=== PATIENT | female | born 1960 | race Caucasian/White ===

== ENCOUNTER → 2017-07-26 | Outpatient (CLI) | payer MEDICARE, OTHER ==
--- NOTE | 2017-07-27 07:34 | MM ---
Reason for exam: screening (asymptomatic). Last mammogram was performed 1 year and 1 month ago. History: Patient is postmenopausal and has history of endometrial cancer at age 21. Cyst aspiration of the left breast, 2004. Physical Findings: A clinical breast exam by your physician is recommended on an annual basis and results should be correlated with mammographic findings. MG 3D Screening Mammo W/Cad Bilateral CC and MLO view(s) were taken. Prior study comparison: June 20, 2016, bilateral MG 3d screening mammo w/cad. June 14, 2015, bilateral MG screening mammo w CAD. The breast tissue is heterogeneously dense. This may lower the sensitivity of mammography. No suspicious abnormality. No significant changes when compared with prior studies. ASSESSMENT: Negative, BI-RAD 1 RECOMMENDATION: Routine screening mammogram of both breasts in 1 year.
== END | disposition home or self-care (01) ==
LOC: RADMAMWWP 09:56
PROVIDERS: ATTEND Family Medicine
DX: Z12.31 Encounter for screening mammogram for malignant neoplasm of breast (principal)
CPT/HCPCS: 77063; G0202

== ENCOUNTER → 2018-12-23 | Outpatient (CLI) | payer MEDICARE, OTHER ==
--- NOTE | 2018-12-23 17:15 | BD ---
EXAMINATION TYPE: Axial Bone Density DATE OF EXAM: 12/23/2018 COMPARISON: NONE CLINICAL HISTORY: Height: 64 Weight: 182.2 FRAX RISK QUESTIONS: Alcohol (3 or more units per day): no Family History (Parent hip fracture): no Glucocorticoids (More than 3mos): no (Ex: prednisone, prednisolone, methylprednisolone, dexamethasone, and hydrocortisone). History of Fracture in Adulthood: no Secondary Osteoporosis: 1. Type 1 Diabetes: no 2. Hyperthyroidism: no 3. Menopause before 45: yes 4. Malnutrition: no 5. Chronic liver disease: no Rheumatoid Arthritis: no Current Tobacco Use: no RISK FACTORS HISTORY OF: Family History of Osteoporosis: no Active: yes Diet low in dairy products/other sources of calcium: yes Postmenopausal woman: age 41 MEDICATIONS: protonix, zantac, x2 antidepressants, Thyroid Medications: thyroid How Long: long time Additional History: EXAM MEASUREMENTS: Bone mineral densitometry was performed using the [employer] System. Bone mineral density as measured about the Lumbar spine is: ----- L1-L4(G/cm2): 1.352 T Score Values are as follows: ----- L2: -0.1 ----- L3: 2.4 ----- L4: 2.4 ----- L1-L4: 1.4 Bone mineral density has: increased 0.9 % since study of: 06.20.2016 Bone mineral density about the R hip (g/cm2): 0.859 Bone mineral density about the L hip (g/cm2): 0.891 T Score values are as follows: -----R Neck: -1.3 -----L Neck: -1.1 -----R Total: -0.1 -----L Total: -0.2 Bone mineral density has: decreased -3.1 % since study of: 06.20.2016 IMPRESSION: Osteopenia (T Score between -2.5 and -1). There is slightly increased risk of fracture and the patient may be considered for treatment. Re-Screen 2-5 years. NOTE: T-SCORE=SD OF THE YOUNG ADULT MEAN.
--- NOTE | 2018-12-24 09:26 | MM ---
Reason for exam: screening (asymptomatic). Last mammogram was performed 1 year and 5 months ago. History: Patient is postmenopausal and has history of endometrial cancer at age 21. Cyst aspiration of the left breast, 2004. Physical Findings: A clinical breast exam by your physician is recommended on an annual basis and results should be correlated with mammographic findings. MG 3D Screening Mammo W/Cad Bilateral CC and MLO view(s) were taken. Prior study comparison: July 26, 2017, bilateral MG 3d screening mammo w/cad. June 20, 2016, bilateral MG 3d screening mammo w/cad. The breast tissue is heterogeneously dense. This may lower the sensitivity of mammography. There are benign appearing round calcifications bilaterally. There is no discrete abnormality. ASSESSMENT: Benign, BI-RAD 2 RECOMMENDATION: Routine screening mammogram of both breasts in 1 year.
== END ==
LOC: RADMAMWWP 10:25
PROVIDERS: ATTEND Family Medicine
DX: Z12.31 Encounter for screening mammogram for malignant neoplasm of breast (principal); M85.80 Other specified disorders of bone density and structure, unspecified site; Z78.0 Asymptomatic menopausal state
CPT/HCPCS: 77063; 77067; 77080

== ENCOUNTER → 2021-12-20 | Outpatient (CLI) | payer MEDICARE ==
--- NOTE | 2021-12-22 11:04 | MM ---
Reason for exam: screening (asymptomatic). Last mammogram was performed 3 years ago. History: Patient is postmenopausal and has history of endometrial cancer at age 21. Cyst aspiration of the left breast, 2004. Physical Findings: A clinical breast exam by your physician is recommended on an annual basis and results should be correlated with mammographic findings. MG 3D Screening Mammo W/Cad Bilateral CC and MLO view(s) were taken. Prior study comparison: December 23, 2018, bilateral MG 3d screening mammo w/cad. July 26, 2017, bilateral MG 3d screening mammo w/cad. The breast tissue is heterogeneously dense. This may lower the sensitivity of mammography. There is chronic nodularity bilaterally. No significant changes when compared with prior studies. ASSESSMENT: Benign, BI-RAD 2 RECOMMENDATION: Routine screening mammogram of both breasts in 1 year.
== END | disposition home or self-care (01) ==
LOC: RADMAMWWP 12:41
PROVIDERS: ATTEND Family Medicine
DX: Z12.31 Encounter for screening mammogram for malignant neoplasm of breast (principal); Z78.0 Asymptomatic menopausal state
CPT/HCPCS: 77063; 77067

== ENCOUNTER → 2023-01-25 | Day surgery (SDC) | payer MEDICARE, OTHER ==
[2023-01-23 09:00] VITALS: BMI 30.9
[~2023-01-25] MED LIST: LACTATED RINGERS 1,000 ML IV ONE; LACTATED RINGERS 1,000 ML IV SCH; LIDOCAINE 1% (10MG/ML) FOR IV START INTRADERMA PRN; LIDOCAINE 2% INJ 20 MG/ML (2 ML VIAL) ONE; PROPOFOL 10 MG/ML 20 ML VIAL IV ONE
[2023-01-25 07:55] VITALS: TEMP 98
[2023-01-25 08:02] LABS: Glucose,Whole Blood 90 mg/dL (70-110)
--- NOTE | 2023-01-25 08:25 | P.GSHP ---
History of Present Illness H&P Date: 01/25/23 Chief Complaint: GERD, epigastric pain This a 62-year-old female presents today for EGD. Patient complaints of GERD and epigastric pain. Past Medical History Past Medical History: Asthma, Cancer, Thyroid Disorder Additional Past Medical History / Comment(s): UTERINE CANCER History of Any Multi-Drug Resistant Organisms: None Reported Past Surgical History: Hysterectomy Additional Past Surgical History / Comment(s): EGD, Past Anesthesia/Blood Transfusion Reactions: No Reported Reaction Smoking Status: Never smoker - Past Family History Mother Family Medical History: No Reported History Medications and Allergies Home Medications Medication Instructions Recorded Confirmed Type Albuterol Inhaler [Ventolin Hfa 2 puff INHALATION TID PRN 01/23/23 01/23/23 History Inhaler] Atorvastatin [Lipitor] 20 mg PO HS 01/23/23 01/23/23 History Cholecalciferol [Vitamin D3 (25 25 mcg PO DAILY 01/23/23 01/23/23 History Mcg = 1000 Iu)] Levothyroxine Sodium [Synthroid] 75 mcg PO DAILY 01/23/23 01/23/23 History Naproxen [Naprosyn] 500 mg PO BID PRN 01/23/23 01/23/23 History Omeprazole 40 mg PO DAILY 01/23/23 01/23/23 History Venlafaxine HCl [Effexor XR] 150 mg PO BID 01/23/23 01/23/23 History buPROPion XL [Wellbutrin XL] 300 mg PO DAILY 01/23/23 01/23/23 History clonazePAM [KlonoPIN] 0.5 mg PO HS 01/23/23 01/23/23 History Allergies Allergy/AdvReac Type Severity Reaction Status Date / Time adhesive tape Allergy RED SKIN, Verified 01/25/23 07:56 ITCHING Surgical - Exam Vital Signs Temp Pulse Resp BP Pulse Ox 98 F 80 16 140/71 98 01/25/23 07:54 01/25/23 07:54 01/25/23 07:54 01/25/23 07:54 01/25/23 07:54 - General well developed, well nourished, no distress - Eyes PERRL - ENT normal pinna - Neck no masses - Respiratory normal expansion - Cardiovascular Rhythm: regular - Abdomen Abdomen: soft, non tender Assessment and Plan Assessment: GERD, epigastric pain. We'll perform EGD.
--- NOTE | 2023-01-25 08:32 | P.OP ---
Date of Procedure: 01/25/23 Preoperative Diagnosis: GERD Postoperative Diagnosis: Antral gastritis Procedure(s) Performed: EGD Anesthesia: MAC Surgeon: Jordan Neal Pathology: other (Antrum, esophagus) Condition: stable Disposition: PACU Description of Procedure: The patient's placed on the endoscopy table in the lateral position. She received IV sedation. The gastroscope placed oropharynx passed in the esophagus and stomach. Scope some placed through the pylorus. The first and second portion of the duodenum appeared normal. Scope was then brought back the antrum this was mildly inflamed. A biopsies performed. The scope was then retroflexed and the remainder the stomach appeared normal. There was no significant hiatal hernia. The GE junction was at 40 cm. The distal esophagusAppeared Minimal inflamed. A biopsies was performed. The proximal esophagus appeared normal. Scope was withdrawn for patient. There was no significant pathology to explain the patient's epigastric pain. Patient was scheduled for a HIDA scan.
[2023-01-25 08:42] VITALS: PULSE 70
[2023-01-25 08:54] VITALS: BP 139/84; RESP 16
--- NOTE | 2023-01-25 15:19 | NM ---
EXAMINATION TYPE: NM hepatobiliary w CCK DATE OF EXAM: 01/25/2023 COMPARISON: NONE INDICATION: Epigastric pain TECHNIQUE: After the intravenous administration of 3.7 mCi Tc 99m Mebrofenin hepatobiliary scintigrap hy is performed. Images were obtained immediately post injection. FINDINGS: There is prompt uptake and excretion of radiotracer by the liver. Extrahepatic ducts are identified at 6 minutes. The gallbladder is visualized out at approximately 4 hours. Small bowel activity is noted within 22 minutes. At 4 hours 1.7 mcg Kinevac was administered, patient was injected with 1.7 mcg of Kinevac, and gallbl adder ejection fraction is calculated at 1% %, which is abnormal. (Normal >35% and <80%.). Note is made of duodenal gastric reflux during the exam. IMPRESSION: 1. Marked delayed filling of the gallbladder. 2. Essentially akinetic gallbladder. No significant measurable ejection fraction from the gallbladder could be elicited.
== END | disposition home or self-care (01) ==
LOC: ORWHC2ENDO 06:58
PROVIDERS: ATTEND Surgery
DX: K29.50 Unspecified chronic gastritis without bleeding (principal); K21.00 Gastro-esophageal reflux disease with esophagitis, without bleeding; J45.909 Unspecified asthma, uncomplicated; Z79.51 Long term (current) use of inhaled steroids; E03.9 Hypothyroidism, unspecified; Z79.890 Hormone replacement therapy; Z79.899 Other long term (current) drug therapy; Z91.048 Other nonmedicinal substance allergy status; Z85.42 Personal history of malignant neoplasm of other parts of uterus; Z98.890 Other specified postprocedural states; Z79.1 Long term (current) use of non-steroidal anti-inflammatories (NSAID)
CPT/HCPCS: 78227; 43239; A9537; J2805; J2704; J2001; 88305

== ENCOUNTER 2023-02-20 06:30 | Day surgery (SDC) | payer MEDICARE, OTHER ==
[2023-02-14 09:34] VITALS: BMI 31.7
[~2023-02-20 06:30] MED LIST changes: +ACETAMINOPHEN TAB 500 MG TAB PO PRN; +DEXAMETHASONE SOD PHOSPHATE 4 MG/ML 1 ML VIAL IV ONE; +HEPARIN SODIUM,PORCINE/PF 5,000 UNIT/0.5 ML SYRINGE SQ PRN; +HYDROmorphone 0.5 MG/0.5 ML SYRINGE IVP PRN; -LACTATED RINGERS 1,000 ML IV ONE; -LIDOCAINE 1% (10MG/ML) FOR IV START INTRADERMA PRN; -LIDOCAINE 2% INJ 20 MG/ML (2 ML VIAL) ONE; +ONDANSETRON 4 MG/2 ML VIAL IVP ONE; -PROPOFOL 10 MG/ML 20 ML VIAL IV ONE
[2023-02-20 07:18] LABS: Glucose,Whole Blood 98 mg/dL (70-110)
[2023-02-20] MEDS ORDERED: MIDAZOLAM 2 MG/2 ML VIAL IVP ONE (07:32)
[2023-02-20] MEDS ORDERED: ROCURONIUM 10 MG/ML (5 ML VIAL) IV ONE (07:44)
[2023-02-20] MEDS ORDERED: GLYCOPYRROLATE 0.2 MG/ML 2 ML VIAL ONE (07:44)
[2023-02-20] MEDS ORDERED: NEOSTIGMINE 1 MG/ML 10 ML VIAL ONE (07:44)
[2023-02-20] MEDS ORDERED: fentaNYL (PF) 50 MCG/ML 2 ML AMP ONE (07:44)
[2023-02-20] MEDS ORDERED: PROPOFOL 10 MG/ML 20 ML VIAL IV ONE (07:44)
[2023-02-20] MEDS ORDERED: LIDOCAINE 2% INJ 20 MG/ML (2 ML VIAL) ONE (07:44)
[2023-02-20] MEDS ORDERED: SUCCINYLCHOLINE CHLORIDE 200 MG/10 ML VIAL IV ONE (07:44)
[2023-02-20] MEDS ORDERED: MIDAZOLAM 2 MG/2 ML VIAL ONE (07:44)
[2023-02-20] MEDS ORDERED: INDOCYANINE GREEN 25 MG VIAL IV STA (07:46)
[2023-02-20] MEDS ORDERED: BUPIVACAIN-EPI 0.25%-1:200,000 30 ML VIAL SQ ONE (08:14)
--- NOTE | 2023-02-20 09:24 | P.OP ---
Date of Procedure: 02/20/23 Preoperative Diagnosis: Chronic cholecystitis Biliary dysfunction Postoperative Diagnosis: Adhesions Procedure(s) Performed: Laparoscopic lysis of adhesions Anesthesia: DEREK Surgeon: Jordan Neal Estimated Blood Loss (ml): 10 Pathology: none sent Condition: stable Disposition: PACU Indications for Procedure: This 62-year-old female who's had complaints of right quadrant pain. Recent HIDA scan shows a akinetic gallbladder with 1% ejection fraction.0 Operative Findings: Dense inflammatory response in area of gallbladder with duodenum and omentum and liver densely adhered to the area Description of Procedure: The patient's placed on the operative table in supine position. She received general anesthesia. Her abdomen was prepped and draped usual fashion. An infraumbilical skin incision was made then using a pair of Pearson clamps the fascia was grasped. Then the Veress was positioned into the Perineal cavity. This was confirmed with positive drop test. The abdomen was insufflated. After adequate insufflation a 5 mm optical trocar is placed. Cavity. And then the laparoscope was placed. Cavity. Next a 12 mm robotic trochars placed in the left epigastric area. A 8 mm robotic trochars placed in right lateral position and then another 8 mm trochars placed in the right midabdomen position. The patient's placed in reverse Trendelenburg right side up. She was undocked the robot. The right upper quadrant exam. There was a dense inflammatory reaction in the right upper quadrant which involved the liver omentum and stomach and duodenum. The adhesions in the area the gallbladder were then lysed using sharp dissection. A left cautery was also used. The gallbladder was not well visualized. At this point due to the dense inflamed response sided to review the HIDA scan. HIDA scan showed delayed filling of the gallbladder requiring approximate 4 hours with a 1% ejection fraction. At this point it was noted that the duodenum was stuck in the area of the the gallbladder. And due to the extensive plantar reaction was decided to stop the procedure and obtain more imaging of the area. There was no bleeding seen. The adhesions were lysed were examined there is no bleeding seen. There is no evidence of any injury to the stomach and duodenum liver. The patient was undocked the robot. The trochars withdrawn. The 12 mm trocar site was closed with 0 Vicryl. Skin was closed with interrupted 3-0 Monocryl suture. Patient top she will was sent to recovery room stable condition.
[2023-02-20 09:33] VITALS: TEMP 97
[2023-02-20] MEDS ORDERED: IV FLUID CONTINUATION 1,000 ML IV ONE (10:41)
--- NOTE | 2023-02-20 11:04 | P.PN ---
Progress Note - Text Progress Note Date: 02/20/23 The patient's HIDA scan was reviewed with Dr. Gallo and Dr. Monson. The HIDA scan was originally reported with a gallbladder filling 4 hours. On secondary review the gallbladder does not appear to fill at all. Radiology will be dictating an addendum.
[2023-02-20 11:24] VITALS: RESP 18
[2023-02-20 11:51] VITALS: BP 116/69; PULSE 83
== END 2023-02-20 12:10 | disposition home or self-care (01) ==
LOC: OR 06:30
PROVIDERS: ATTEND Surgery
DX: K66.0 Peritoneal adhesions (postprocedural) (postinfection) (principal); K81.1 Chronic cholecystitis; K82.8 Other specified diseases of gallbladder; E78.5 Hyperlipidemia, unspecified; J45.909 Unspecified asthma, uncomplicated; E03.9 Hypothyroidism, unspecified; F41.8 Other specified anxiety disorders; K21.9 Gastro-esophageal reflux disease without esophagitis; Z79.890 Hormone replacement therapy; Z79.51 Long term (current) use of inhaled steroids; Z79.899 Other long term (current) drug therapy; Z98.890 Other specified postprocedural states
CPT/HCPCS: 44180; J2250; J0330; J1100; J2710; J0690; J2405; J3010; J2704; J1170; J1644; J2001

== ENCOUNTER → 2023-03-29 | Outpatient (CLI) | payer MEDICARE, OTHER ==
--- NOTE | 2023-03-30 11:19 | MR ---
EXAMINATION TYPE: MR MRCP DATE OF EXAM: 03/29/2023 8:21 AM CLINICAL INDICATION:Female, 62 years old with history of K83.1 OBSTRUCTION OF BILE DUCT; abdomen pain , dilated bile duct COMPARISON: 03/05/2023 TECHNIQUE: Multi planar, T2-weighted imaging with and without fat saturation and chemical shift imag ing was performed of the abdomen. Then, heavily T2 weighted imaging (half-Fourier acquisition single- shot turbo spin-echo) was utilized in order to study the biliary system. Maximum intensity projectio n images were reconstructed from the original data of the biliary tree. 3D images were created on [employer] work station. No Gadolinium given. FINDINGS: MRCP: The intrahepatic ducts are normal in appearance.. The common bile duct at the level of the pa ncreatic head measures 7 mm in size. The common hepatic duct measures 5 mm in size. The pancreatic d uct is normal. The gallbladder demonstrates low T1/T2 signal gallstones measuring up to 17 mm. The gallbladder is co ntracted without evidence for wall thickening or high T2 signal Fat stranding around the gallbladder fossa. Abdomen: Liver: Signal dropout on chemical shift artifact is imaging of the liver parenchyma. No focal mass vi sualized. Pancreas: Unremarkable. Spleen: 8 mm intermediate T2 signal lesion within the spleen. Adrenal glands: Unremarkable. Kidneys: Unremarkable. Stomach and Bowel: Unremarkable as visualized. Peritoneum: No evidence of pneumoperitoneum, free fluid, or adenopathy. Vasculature: Unremarkable. No aortic aneurysm. Abdominal wall: Fat-containing umbilical hernia. Musculoskeletal: The osseous structures appear intact. IMPRESSION: 1. No evidence for choledocholithiasis. No ductal dilation or stricture. Given HIDA scan on 3 with nonvisualization of the gallbladder findings suggest some component of cholecystitis (acute/ch ronic). There is no pericholecystic inflammation or wall thickening definitively visualized. 2. Cholelithiasis.. 3. Splenic 8 mm hemangioma versus cyst. 4. Hepatic steatosis.
== END | disposition home or self-care (01) ==
LOC: RADMRIMAIN 07:13
PROVIDERS: ATTEND Surgery
DX: K76.0 Fatty (change of) liver, not elsewhere classified (principal); K80.21 Calculus of gallbladder without cholecystitis with obstruction
CPT/HCPCS: 74181

== ENCOUNTER → 2023-04-05 | Outpatient (CLI) | payer MEDICARE ==
--- NOTE | 2023-04-06 18:06 | MM ---
Reason for Exam: Screening (asymptomatic). Last mammogram was performed 1 year(s) and 4 month(s) ago. Patient History: Menarche at age 13. First Full-Term at age 17. Hysterectomy at age 21. Postmenopausal. Endometrial cancer, age 21. 2005, Cyst Aspiration on the Left side. Risk Values: Tomasa 5 year model risk: 1.1%. NCI Lifetime model risk: 5.2%. Prior Study Comparison: 07/26/2017 Bilateral Screening Mammogram, [facility]. 12/23/2018 Bilateral Screening Mammogram, [facility]. 12/20/2021 Bilateral Screening Mammogram, [facility]. Tissue Density: The breast tissue is heterogeneously dense. This may lower the sensitivity of mammography. Findings: Analyzed By CAD. Asymmetric densities within the right breast remain unchanged. Chronic nodularity within the left breast. There is no suspicious group of microcalcifications or new suspicious mass in either breast. Overall Assessment: Benign, BI-RAD 2 Management: Screening Mammogram of both breasts in 1 year. . Patient should continue monthly self-breast exams. A clinical breast exam by your physician is recommended on an annual basis. This exam should not preclude additional follow-up of suspicious palpable abnormalities. Note on Tomasa scores and lifetime risk: 1. A Tomsaa score greater than 3% is considered moderate risk. If this is the case, consider specialist referral to assess eligibility for a risk reducing agent. 2. If overall lifetime risk for the development of breast cancer is 20% or higher, the patient may qualify for future screening with alternating mammogram and breast MRI. Electronically signed and approved by: Aurora Gallo M.D. Radiologist
== END | disposition home or self-care (01) ==
LOC: RADMAMWWP 10:41
PROVIDERS: ATTEND Family Medicine
DX: Z12.31 Encounter for screening mammogram for malignant neoplasm of breast (principal); Z78.0 Asymptomatic menopausal state
CPT/HCPCS: 77063; 77067

== ENCOUNTER 2023-04-18 06:41 | Inpatient (IN) | payer MEDICARE ==
[2023-04-13 13:32] VITALS: BMI 32.5
[~2023-04-18 06:41] MED LIST changes: -HYDROmorphone 0.5 MG/0.5 ML SYRINGE IVP PRN; -LACTATED RINGERS 1,000 ML IV SCH
[2023-04-18] MEDS ORDERED: LIDOCAINE 1% (10MG/ML) FOR IV START INTRADERMA ONE (08:05)
[2023-04-18] MEDS: LACTATED RINGERS 1,000 ML IV SCH (08:05)
[2023-04-18] MEDS ORDERED: BUPIVACAINE (PF) 0.25% 30 ML VIAL SQ ONE ×2 (08:23→08:51)
[2023-04-18] MEDS ORDERED: LIDOCAINE 2% INJ 20 MG/ML (2 ML VIAL) ONE (08:26)
[2023-04-18] MEDS ORDERED: SUCCINYLCHOLINE CHLORIDE 200 MG/10 ML VIAL IV ONE (08:26)
[2023-04-18] MEDS ORDERED: NEOSTIGMINE 1 MG/ML 10 ML VIAL ONE (08:26)
[2023-04-18] MEDS ORDERED: MIDAZOLAM 2 MG/2 ML VIAL ONE (08:26)
[2023-04-18] MEDS ORDERED: KETOROLAC 15 MG/ML 1 ML VIAL ONE (08:26)
[2023-04-18] MEDS ORDERED: GLYCOPYRROLATE 0.2 MG/ML 2 ML VIAL ONE (08:26)
[2023-04-18] MEDS ORDERED: fentaNYL (PF) 50 MCG/ML 2 ML AMP ONE (08:26)
[2023-04-18] MEDS ORDERED: ROCURONIUM 10 MG/ML (5 ML VIAL) IV ONE (08:26)
[2023-04-18] MEDS ORDERED: PROPOFOL 10 MG/ML 20 ML VIAL IV ONE (08:26)
--- NOTE | 2023-04-18 10:23 | P.OP ---
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 The patient received a general endotracheal tube anesthesia. The patients abdomen was prepped and draped in the usual sterile fashion. Through an infraumbilical stab incision, the fascia of the anterior abdominal wall was grasped with a pair of Kochers and then the Veress needle was placed in the peritoneal cavity. Position of the Veress needle was confirmed with positive drop test. The abdomen was then insufflated. After adequate insufflation, the 10 mm trocar was placed in the peritoneal cavity. Following this the laparoscope was placed in the peritoneal cavity. The patient was placed in the head-up, right side up position and then a 5 mm trocar was placed in the right lateral and right subcostal position under direct visualization. A 8 mm trocar was placed in the epi gastric position. There were significant adhesions around the edge of the liver where the gallbladder was especially be. There was also visualized stomach drawn up into the adhesions. Several times made to lyse the adhesions were quite dense. This point decided to convert the procedure to an open cholecystectomy. The trochars withdrawn. The skin was incised in the right subcostal area. Then using electrocautery the subcutaneous tissues were divided. And then the fascia was divided. The muscles were then divided using electrocautery. The perineal cavity was entered. A Bookwalter retractors placed a wound. There were dense adhesions in the expected area of the gallbladder. The stomach was dissected off of this area. And there was a fistulous seen between the stomach and gallb ladder. The stomach was repaired with 3-0 GI silk suture. The gallbladder was opened at the area the fistula and there were gallstones seen within the gallbladder. The gallstones were extracted. The gallbladder was thickened and contracted. There was significant inflammatory response throughout the entire area of the gallbladder. Using blunt and sharp dissection the common bile duct was then found. And then the cystic duct and common hepatic duct were visualized. The union between the cystic duct common hepatic duct and common bile duct was visualized. The cystic duct was then suture ligated with 0 silk ties and then transected. Then using 3-0 GI silk suture the cystic artery was divided and ligated. The gallbladder was then dissected off the liver bed using left cautery. The gallbladder was then sent to pathology. The gallstones were also sent to pathology. The liver visit for hemostasis. There is no bleeding seen. The wound was then Irrigated there is no evidence of any bile leak or bleeding seen. A ANDERSON drain is placed in the gallbladder fossa and brought out through the lateral 5 mm trocar site. The fascia was then closed with looped #1 PDS suture. Skin was closed cheryl. Patient top procedure well and was sent to recovery room in stable condition.
[2023-04-18] MEDS ORDERED: HYDROmorphone 0.5 MG/0.5 ML SYRINGE IVP PRN (10:24)
[2023-04-18] MEDS ORDERED: LACTATED RINGERS 1,000 ML IV ONE (10:24)
[2023-04-18] MEDS ORDERED: ONDANSETRON 4 MG/2 ML VIAL IVP PRN (10:24)
[2023-04-18] MEDS ORDERED: NALOXONE 0.4 MG/ML 1 ML VIAL IV PRN (10:24)
[2023-04-18] MEDS: HYDROmorphone 0.5 MG/0.5 ML SYRINGE IVP PRN ×3 (10:40→11:30)
[2023-04-18] MEDS: HYDROmorphone 1 MG/ML 1 ML SYRINGE IVP PRN ×2 (13:42→20:07)
[2023-04-18] MEDS: KETOROLAC 15 MG/ML 1 ML VIAL IVP SCH ×3 (13:52→23:50)
[2023-04-18] MEDS ORDERED: IPRATROPIUM-ALBUTEROL 3 ML NEB INHALATION PRN (13:59)
[2023-04-18] MEDS: buPROPion XL 300 MG TAB.ER.24H PO SCH (16:59)
[2023-04-18] MEDS: PANTOPRAZOLE 40 MG TABLET PO SCH (16:59)
[2023-04-18] MEDS: VENLAFAXINE HCL ER 150 MG CAP PO SCH (20:07)
[2023-04-18] MEDS ORDERED: VENLAFAXINE HCL ER 150 MG CAP PO SCH (21:00)
[2023-04-19] MEDS: HYDROmorphone 1 MG/ML 1 ML SYRINGE IVP PRN ×2 (00:41→06:01)
[2023-04-19] MEDS: LEVOTHYROXINE 75 MCG TAB PO SCH (05:58)
[2023-04-19] MEDS: KETOROLAC 15 MG/ML 1 ML VIAL IVP SCH ×4 (06:01→23:07)
[2023-04-19] MEDS: LACTATED RINGERS 1,000 ML IV SCH (06:02)
[2023-04-19] MEDS ORDERED: IPRATROPIUM-ALBUTEROL 3 ML NEB INHALATION PRN (08:39)
[2023-04-19] MEDS: SYMBICORT 80-4.5 MCG INHALER INHALATION SCH ×2 (08:58→21:11)
[2023-04-19] MEDS ORDERED: PANTOPRAZOLE 40 MG TABLET PO SCH (09:00)
[2023-04-19] MEDS ORDERED: buPROPion XL 300 MG TAB.ER.24H PO SCH (09:00)
[2023-04-19] MEDS: PANTOPRAZOLE 40 MG TABLET PO SCH (09:48)
[2023-04-19] MEDS: buPROPion XL 300 MG TAB.ER.24H PO SCH (09:48)
[2023-04-19] MEDS: VENLAFAXINE HCL ER 150 MG CAP PO SCH ×2 (09:48→20:53)
[2023-04-19] MEDS: ENOXAPARIN 40 MG/0.4 ML SYRINGE SQ SCH (09:48)
[2023-04-19] MEDS: LORATADINE 10 MG TAB PO SCH (09:48)
[2023-04-19 11:06] LABS: Basophils # (A) 0.05 X 10*3/uL (0.00-0.10); Basophils % (A) 0.3 %; Eosinophils # (A) 0.07 X 10*3/uL (0.04-0.35); Eosinophils % (A) 0.4 %; HCT 42.4 % (37.2-46.3); HGB 13.4 d/dL (12.0-15.0); Lymphocytes # (A) 1.79 X 10*3/uL (0.90-5.00); Lymphocytes % (A) 9.7 %; MCH 29.4 pg (27.0-32.0); MCHC 31.6 d/dL (32.0-37.0); Mean Platelet Volume 10.6 FL (9.5-12.2); Monocytes # (A) 1.43 X 10*3/uL (0.20-1.00); Monocytes % (A) 7.7 %; NRBC Per 100 WBC 0 X 10*3/uL (0.00-0.01); Neutrophils # (A) 15.06 X 10*3/uL (1.80-7.70); Neutrophils % (A) 81.4 %; Platelet Count 319 X 10*3/uL (140-440); RBC 4.56 X 10*6/uL (4.10-5.20); RDW 13.5 % (11.5-14.5)
[2023-04-19 11:08] LABS: ALT 191 U/L (8-44); AST 125 U/L (13-35); Albumin 4.2 d/dL (3.8-4.9); Albumin/Globulin Ratio 1.91 Ratio (1.60-3.17); Alkaline Phosphatase 97 U/L (41-126); BUN/Creat Ratio 22.33 Ratio (12.00-20.00); Blood Urea Nitrogen 20.1 mg/dL (9.0-27.0); Calcium 9.3 mg/dL (8.7-10.3); Carbon Dioxide 28.4 mmol/L (21.6-31.8); Chloride 100 mmol/L (96-109); Globulin 2.2 d/dL (1.6-3.3); Glucose 133 mg/dL (70-110); Potassium 4.2 mmol/L (3.5-5.5); Sodium 141 mmol/L (135-145); Total Bilirubin 0.7 mg/dL (0.3-1.2); Total Protein 6.4 d/dL (6.2-8.2)
[2023-04-19] MEDS: IPRATROPIUM-ALBUTEROL 3 ML NEB INHALATION SCH ×3 (11:26→21:11)
[2023-04-19] MEDS: PIPERACILLIN-TAZOBACTAM 3.375 GM in SODIUM CHLORIDE 0.9% 100 ML IVPB SCH ×2 (12:37→20:53)
[2023-04-19] MEDS ORDERED: DEXTROSE 50% SYRINGE 50 ML IVP PRN ×2 (12:50)
--- NOTE | 2023-04-19 13:24 | P.PN ---
Subjective Progress Note Date: 04/19/23 CHIEF COMPLAINT: Acute on chronic cholecystitis HISTORY OF PRESENT ILLNESS: Patient is postop day #1 status post diagnostic laparoscopy with open cholecystectomy and repair of gastric fistula. Patient reports her pain is controlled. She denies any nausea or vomiting. She is having flatus. ANDERSON drain with sanguinous output. Afebrile. White count is elevated at 18.5 H3 13.4 platelets 319 Na 141 potassium is 4.2 creatinine 0.9 total bilirubin 0.7 AST 125 ALT 191 alk phos 97 ANDERSON drain was 60 mL serosa nguineous output PHYSICAL EXAM: VITAL SIGNS: Reviewed. GENERAL: Well-developed in no acute distress. HEENT: No sclera icterus. Extraocular movements grossly intact. Moist buccal mucosa. Head is atraumatic, normocephalic. ABDOMEN: Soft. Nondistended. Tender incision site. Incisional dressing clean dry and intact. Has abdominal binder. ANDERSON drain with serositis output NEUROLOGIC: Alert and oriented. Cranial nerves II through XII grossly intact. ASSESSMENT: 1. Acute on chronic cholecystitis with gastric fistula between the gallbladder and antrum and cholelithiasis status post diagnostic laparoscopy, open cholecystectomy and repair of gastric fistula 2. Leukocytosis PLAN: -Zosyn added for leukocytosis -Continue clear liquid diet -Repeat LFTs in a.m. -Continue pain management -Encouraged patient to use incentive spirometer -Encouraged patient to ambulate -DVT prophylaxis Lovenox and GI prophylaxis Protonix Physician Transportation Job Titles note has been reviewed by physician. Signing provider agrees with the documented findings, assessment, and plan of care. Objective - Vital Signs Vital signs: Vital Signs Temp 98.0 F 04/19/23 06:53 Pulse 88 04/19/23 11:41 Resp 18 04/19/23 06:53 BP 134/76 04/19/23 06:53 Pulse Ox 96 04/19/23 07:26 FiO2 Intake & Output 04/18/23 04/19/23 04/19/23 18:59 06:59 18:59 Intake Total 950 300 Output Total 110 60 Balance 840 300 -60 Weight 88 kg Intake: IV 950 Oral 300 Output: Drainage 60 60 Right Abdomen 60 60 Estimated Blood Loss 50 Other: Voiding Method Toilet Toilet # Voids 1 0 - Labs CBC & Chem 7: 04/19/23 06:43 04/19/23 06:43 Labs: Abnormal Lab Results - Last 24 Hours (Table) 04/19/23 04/19/23 Range/Units 06:43 06:43 WBC 18.50 H (4.50-10.00) X 10*3/uL MCHC 31.6 L (32.0-37.0) d/dL Neutrophils # 15.06 H (1.80-7.70) X 10*3/uL Monocytes # 1.43 H (0.20-1.00) X 10*3/uL Anion Gap 12.60 H (4.00-12.00) mmol/L BUN/Creatinine Ratio 22.33 H (12.00-20.00) Ratio Glucose 133 H (70-110) mg/dL AST 125 H (13-35) U/L ALT 191 H (8-44) U/L
--- NOTE | 2023-04-19 13:35 | P.CONS ---
History of Present Illness - Reason for Consult Consult date: 04/19/23 Medical management asthma Requesting physician: Jordan Neal - Chief Complaint Status post open cholecystectomy With gastric fistula repair - History of Present Illness This is a 63-year-old female with past medical history significant for laparoscopic lysis of adhesions, history of uterine cancer, hysterectomy, asthma, hypothyroidism, anxiety, depression and multiple other medical issues status post diagnostic laparoscopy, open cholecystectomy with repair of gastric fistula. Patient reports "recent attempted surgery but was unable to locate gallbladder. " ( OR 02/20/23, reported intense inflammatory reaction in the right upper quadrant involving the liver omentum ,stomach and duodenum , adhesions in the area of the gallbladder lysed, gallbladder not well visualized, duodenum was stuck in the area of the gallbladder.Procedure aborted to obtain more imaging of the area, post lysis of adhesions.) This morning patient is status post diagnostic laparoscopy, open cholecystectomy with repair of gastric fistula, postop day #1. Maintained on IV fluid hydration, Zosyn .Reports breathing tightness, hypoxic, maintaining O2 sats in the 90s on 3 L nasal cannula. T-max 99.1, elevated WBC, 18.5. Hemoglobin 13.4, platelets 319, Bicarb 28.4, BUN 20.1, creatinine 0.9, glucose 133, AST 125, ALT 191. Reports pain uncontrolled last night,but improved this morning. Denies passing flatus. Denies nausea, vomiting. Denies chest pain, palpitations or shortness of breath. Review of Systems ROS Statement: Those systems with pertinent positive or pertinent negative responses have been documented in the HPI. ROS Other: All systems not noted in ROS Statement are negative. Past Medical History Past Medical History: Asthma, Cancer, Hyperlipidemia, Thyroid Disorder Additional Past Medical History / Comment(s): UTERINE CANCER History of Any Multi-Drug Resistant Organisms: None Reported Past Surgical History: Hysterectomy Additional Past Surgical History / Comment(s): LAPAROSCOPIC LYSIS OF ADHESIONS Past Anesthesia/Blood Transfusion Reactions: No Reported Reaction Past Psychological History: Anxiety, Depression Smoking Status: Never smoker Past Alcohol Use History: None Reported Past Drug Use History: None Reported - Past Family History Mother Family Medical History: No Reported History Medications and Allergies Home Medications Medication Instructions Recorded Confirmed Type Albuterol Inhaler [Ventolin Hfa 2 puff INHALATION TID PRN 01/23/23 04/13/23 History Inhaler] Atorvastatin [Lipitor] 20 mg PO HS 01/23/23 04/13/23 History Cholecalciferol [Vitamin D3 (25 25 mcg PO DAILY 01/23/23 02/14/23 History Mcg = 1000 Iu)] Levothyroxine Sodium [Synthroid] 75 mcg PO DAILY 01/23/23 04/13/23 History Naproxen [Naprosyn] 500 mg PO BID PRN 01/23/23 04/13/23 History Omeprazole 40 mg PO DAILY 01/23/23 04/13/23 History Venlafaxine HCl [Effexor XR] 150 mg PO BID 01/23/23 04/13/23 History buPROPion XL [Wellbutrin XL] 300 mg PO DAILY 01/23/23 04/13/23 History clonazePAM [KlonoPIN] 0.5 mg PO HS 01/23/23 04/13/23 History Docusate [Colace] 100 mg PO BID #20 capsule 02/20/23 04/13/23 Rx oxyCODONE HCL [OxyIR] 5 mg PO Q6H PRN 3 Days #10 tab 02/20/23 04/13/23 Rx Allergies Allergy/AdvReac Type Severity Reaction Status Date / Time adhesive tape Allergy RED SKIN, Verified 04/13/23 13:25 ITCHING Physical Exam Vitals: Vital Signs Temp Pulse Pulse Resp BP Pulse Ox 04/19/23 11:41 88 04/19/23 11:26 90 04/19/23 09:14 94 04/19/23 09:04 92 04/19/23 07:26 96 04/19/23 06:53 98.0 F 94 18 134/76 94 L 04/19/23 01:45 99.1 F 86 18 142/80 96 04/18/23 19:09 98.0 F 80 18 138/81 98 04/18/23 15:48 79 134/73 95 04/18/23 15:47 79 130/73 95 04/18/23 15:46 80 122/76 97 04/18/23 15:45 86 131/71 92 L 04/18/23 15:44 78 145/81 90 L 04/18/23 15:43 75 144/83 92 L 04/18/23 15:42 76 134/80 92 L 04/18/23 15:14 96 04/18/23 13:50 97.0 F L 87 16 145/81 90 L Intake and Output 04/18/23 04/19/23 04/19/23 22:59 06:59 14:59 Intake Total 300 Output Total 60 60 Balance -60 300 -60 Intake: Oral 300 Output: Drainage 60 60 Right Abdomen 60 60 Other: Voiding Method Toilet Toilet # Voids 1 0 PHYSICAL EXAM: VITAL SIGNS: As above GENERAL: Sitting up in bed, no acute distress HEENT: Normocephalic, Conjunctivae normal. eyes normal. NECK: Supple, No JVD. No thyroid enlargement. No LNs CARDIOVASCULAR: S1, S2 regular. No murmur RESPIRATION: Breath sounds diminished in the bases.No rhonchi or crackles. No bronchial breathing. ABDOMEN: Soft, status post surgery, wearing an abdominal binder, dressing clean dry and intact. ANDERSON with serosanguineous drainage. LEGS: No edema. no swelling PSYCHIATRY: Alert and oriented X3, mood and affect normal. NERVOUS SYSTEM: Cranial N 2-12 grossly normal.No focal deficits. Strength and sensation grossly intact. Skin: Warm and dry, no rash noted. Results CBC & Chem 7: 04/19/23 06:43 04/19/23 06:43 Labs: Abnormal Lab Results - Last 24 Hours (Table) 04/19/23 04/19/23 Range/Units 06:43 06:43 WBC 18.50 H (4.50-10.00) X 10*3/uL MCHC 31.6 L (32.0-37.0) d/dL Neutrophils # 15.06 H (1.80-7.70) X 10*3/uL Monocytes # 1.43 H (0.20-1.00) X 10*3/uL Anion Gap 12.60 H (4.00-12.00) mmol/L BUN/Creatinine Ratio 22.33 H (12.00-20.00) Ratio Glucose 133 H (70-110) mg/dL AST 125 H (13-35) U/L ALT 191 H (8-44) U/L Assessment and Plan Assessment: Status post exploratory laparotomy, open cholecystectomy with gastric fistula repair, in a patient with recent adhesions in the area of the gallbladder lysed,02/20/23. Leukocytosis Acute hypoxic respiratory failure postoperatively, expected outcome Chronic ALLERGY, exertional-induced asthma, since childhood. Elevated AST and ALT, postoperative Hyperglycemia, hemoglobin A1c ordered Hypothyroidism Anxiety Depression Morbid obesity, BMI 33.3 Plan: Continue on current medication regime ,monitoring and symptomatic treatment. Asthma regimen ordered including Nebulized bronchodilators prn as well as scheduled. Aggressive pulmonary toileting including incentive spirometer. Splinting discussed. Encouraged to sit up in chair, increase am bulation as tolerated. Pain management, antibiotics as per general surgery. Blood sugars mildly elevated, hemoglobin A1c and NovoLog sliding scale ordered. Close monitoring of WBC, LFTs with repeat labs ordered for a.m. The impression and plan of care has been dictated as directed. : I performed a history and examination of this patient, discussed the same with the dictator. I agree with the dictator's note ,documented as a scribe. Any additional findings or plans will be noted.
[2023-04-19 17:33] LABS: Glucose,Whole Blood 121 mg/dL (70-110)
[2023-04-19] MEDS: INSULIN ASPART (NovoLOG) 100 UNIT/ML VIAL SQ SCH ×2 (17:38→21:28)
[2023-04-19] MEDS: ACETAMINOPHEN TAB 325 MG TAB PO PRN (18:52)
[2023-04-19] MEDS: MONTELUKAST 10 MG TAB PO SCH (20:53)
[2023-04-19] MEDS: clonazePAM 0.5 MG TAB PO SCH (20:53)
[2023-04-19 21:24] LABS: Glucose,Whole Blood 110 mg/dL (70-110)
[2023-04-20] MEDS: PIPERACILLIN-TAZOBACTAM 3.375 GM in SODIUM CHLORIDE 0.9% 100 ML IVPB SCH ×3 (04:54→22:17)
[2023-04-20 05:50] LABS: Glucose,Whole Blood 101 mg/dL (70-110)
[2023-04-20] MEDS: INSULIN ASPART (NovoLOG) 100 UNIT/ML VIAL SQ SCH ×4 (05:54→22:16)
[2023-04-20] MEDS: LACTATED RINGERS 1,000 ML IV SCH (05:54)
[2023-04-20] MEDS: LEVOTHYROXINE 75 MCG TAB PO SCH (05:56)
[2023-04-20] MEDS: KETOROLAC 15 MG/ML 1 ML VIAL IVP SCH (05:56)
[2023-04-20] MEDS: PANTOPRAZOLE 40 MG TABLET PO SCH (07:48)
[2023-04-20] MEDS: ENOXAPARIN 40 MG/0.4 ML SYRINGE SQ SCH (07:48)
[2023-04-20] MEDS: VENLAFAXINE HCL ER 150 MG CAP PO SCH ×2 (07:48→22:17)
[2023-04-20] MEDS: LORATADINE 10 MG TAB PO SCH (07:48)
[2023-04-20] MEDS: buPROPion XL 300 MG TAB.ER.24H PO SCH (07:48)
[2023-04-20] MEDS: IPRATROPIUM-ALBUTEROL 3 ML NEB INHALATION SCH ×4 (07:54→20:28)
[2023-04-20] MEDS: SYMBICORT 80-4.5 MCG INHALER INHALATION SCH ×2 (07:54→20:28)
[2023-04-20 09:30] LABS: Basophils # (A) 0.06 X 10*3/uL (0.00-0.10); Basophils % (A) 0.4 %; Eosinophils # (A) 0.06 X 10*3/uL (0.04-0.35); Eosinophils % (A) 0.4 %; HCT 36.2 % (37.2-46.3); HGB 11.6 d/dL (12.0-15.0); Lymphocytes # (A) 1.91 X 10*3/uL (0.90-5.00); Lymphocytes % (A) 14.3 %; MCH 29.5 pg (27.0-32.0); MCV 92.1 FL (80.0-97.0); Mean Platelet Volume 10.5 FL (9.5-12.2); Monocytes # (A) 1.09 X 10*3/uL (0.20-1.00); Monocytes % (A) 8.2 %; NRBC Per 100 WBC 0 X 10*3/uL (0.00-0.01); Neutrophils # (A) 10.17 X 10*3/uL (1.80-7.70); Neutrophils % (A) 76.2 %; Platelet Count 224 X 10*3/uL (140-440); RBC 3.93 X 10*6/uL (4.10-5.20); RDW 13.2 % (11.5-14.5); WBC 13.36 X 10*3/uL (4.50-10.00)
[2023-04-20 10:41] LABS: ALT 102 U/L (8-44); AST 55 U/L (13-35); Albumin 3.6 d/dL (3.8-4.9); Albumin/Globulin Ratio 1.71 Ratio (1.60-3.17); Alkaline Phosphatase 84 U/L (41-126); BUN/Creat Ratio 16.11 Ratio (12.00-20.00); Blood Urea Nitrogen 14.5 mg/dL (9.0-27.0); Calcium 9.1 mg/dL (8.7-10.3); Carbon Dioxide 27.2 mmol/L (21.6-31.8); Chloride 101 mmol/L (96-109); Globulin 2.1 d/dL (1.6-3.3); Glucose 100 mg/dL (70-110); Potassium 3.8 mmol/L (3.5-5.5); Sodium 140 mmol/L (135-145); Total Bilirubin 0.8 mg/dL (0.3-1.2); Total Protein 5.7 d/dL (6.2-8.2)
[2023-04-20 11:46] LABS: Glucose,Whole Blood 110 mg/dL (70-110)
--- NOTE | 2023-04-20 12:13 | P.PN ---
Subjective Progress Note Date: 04/20/23 CHIEF COMPLAINT: Acute on chronic cholecystitis HISTORY OF PRESENT ILLNESS: Patient is postop day #2 status post diagnostic laparoscopy with open cholecystectomy and repair of gastric fistula. Patient is sitting up at bedside chair. She does complain of abdominal pain. Pain is less than yesterday. She doesn't feel ready for discharge yet. Denies any nausea or vomiting. Currently on a clear liquid diet. She is having flatus. Afebrile. WBC is down from 18-13.36 Hgb 11.6 platelets 224 7140 potassium 3.8 creatinine 0.9 total bili 0.8 AST 125 down to 55 ALT 191 down to 102 ANDERSON drain with serosan guineous output PHYSICAL EXAM: VITAL SIGNS: Reviewed. GENERAL: Well-developed in no acute distress. HEENT: No sclera icterus. Extraocular movements grossly intact. Moist buccal mucosa. Head is atraumatic, normocephalic. ABDOMEN: Soft. Nondistended. Tender incision site. Incisional dressing clean dry and intact. Has abdominal binder. NEUROLOGIC: Alert and oriented. Cranial nerves II through XII grossly intact. ASSESSMENT: 1. Acute on chronic cholecystitis with gastric fistula between the gallbladder and antrum and cholelithiasis status post diagnostic laparoscopy, open cholecys tectomy and repair of gastric fistula 2. Leukocytosis PLAN: -Advance diet to regular -Add Makoti for oral pain medication -Continue IV antibiotic -Anticipate discharge possibly Sunday -Encouraged patient to use incentive spirometer -Encouraged patient to ambulate -DVT prophylaxis Lovenox and GI prophylaxis Protonix Physician Boiler Testing Technician note has been reviewed by physician. Signing provider agrees with the documented findings, assessment, and plan of care. Objective - Vital Signs Vital signs: Vital Signs Temp 98.2 F 04/20/23 00:59 Pulse 75 04/20/23 00:59 Resp 18 04/20/23 00:59 BP 128/75 04/20/23 00:59 Pulse Ox 92 L 04/20/23 07:54 FiO2 Intake & Output 04/19/23 04/20/23 04/20/23 18:59 06:59 18:59 Intake Total 250 Output Total 60 Balance -60 250 Intake: Oral 250 Output: Drainage 60 Right Abdomen 60 Other: Voiding Method Toilet # Voids 3 1 # Bowel Movements 0 - Labs CBC & Chem 7: 04/20/23 05:59 04/20/23 05:59 Labs: Abnormal Lab Results - Last 24 Hours (Table) 04/19/23 04/19/23 04/19/23 Range/Units 06:43 06:43 17:31 WBC 18.50 H (4.50-10.00) X 10*3/uL MCHC 31.6 L (32.0-37.0) d/dL Neutrophils # 15.06 H (1.80-7.70) X 10*3/uL Monocytes # 1.43 H (0.20-1.00) X 10*3/uL Anion Gap 12.60 H (4.00-12.00) mmol/L BUN/Creatinine Ratio 22.33 H (12.00-20.00) Ratio Glucose 133 H (70-110) mg/dL POC Glucose (mg/dL) 121 H (70-110) mg/dL AST 125 H (13-35) U/L ALT 191 H (8-44) U/L
--- NOTE | 2023-04-20 14:21 | P.PN ---
Subjective Progress Note Date: 04/20/23 - History of Present Illness This is a 63-year-old female with past medical history significant for laparoscopic lysis of adhesions, history of uterine cancer, hysterectomy, asthma, hypothyroidism, anxiety, depression and multiple other medical issues status post diagnostic laparoscopy, open cholecystectomy with repair of gastric fistula. Patient reports "recent attempted surgery but was unable to locate gallbladder. " ( OR 02/20/23, reported intense inflammatory reaction in the right upper quadrant involving the liver omentum ,stomach and duodenum , adhesions in the area of the gallbladder lysed, gallbladder not well visualized, duodenum was stuck in the area of the gallbladder.Procedure aborted to obtain more imaging of the area, post lysis of adhesions.) This morning patient is status post diagnostic laparoscopy, open cholecystectomy with repair of gastric fistula, postop day #1. Maintained on IV fluid hydration, Zosyn .Reports breathing tightness, hypoxic, maintaining O2 sats in the 90s on 3 L nasal cannula. T-max 99.1, elevated WBC, 18.5. Hemoglobin 13.4, platelets 319, Bicarb 28.4, BUN 20.1, creatinine 0.9, glucose 133, AST 125, ALT 191. Reports pain uncontrolled last night,but improved this morning. Denies passing flatus. Denies nausea, vomiting. Denies chest pain, palpitations or shortness of breath. 04/20/2023 Tolerating clear liquid diet with no nausea vomiting or diarrhea. Afebrile, WBC trending down, 13.36. Breathing significantly improved .Maintaining O2 sats in the 90s on RA. Hemoglobin decreased to 11.6, platelets 224. BUN 14.5, creatinine 0.9. AST, ALT elevated, improving, 55, 102. Blood sugars controlled, A1c 5.7. Ambulating to bathroom, tolerated exertion well. Objective - Vital Signs Vital signs: Vital Signs Temp 98.4 F 04/20/23 06:50 Pulse 80 04/20/23 06:50 Resp 15 04/20/23 06:50 BP 123/73 04/20/23 06:50 Pulse Ox 92 L 04/20/23 07:54 FiO2 Intake & Output 04/19/23 04/20/23 04/20/23 18:59 06:59 18:59 Intake Total 250 Output Total 60 Balance -60 250 Intake: Oral 250 Output: Drainage 60 Right Abdomen 60 Other: Voiding Method Toilet # Voids 3 1 # Bowel Movements 0 - Exam PHYSICAL EXAM: VITAL SIGNS: As above GENERAL: Sitting up in chair, no acute distress HEENT: Normocephalic, Conjunctivae normal. eyes normal. MMM. NECK: Supple, No JVD. No thyroid enlargement. CARDIOVASCULAR: S1, S2 regular. No murmur RESPIRATION: Breath sounds diminished in the bases.No rhonchi or crackles. No bronchial breathing. ABDOMEN: Soft, status post surgery, wearing an abdominal binder, ANDERSON with serosanguineous drainage. LEGS: No edema. no swelling PSYCHIATRY: Alert and oriented X3, mood and affect normal. NERVOUS SYSTEM: Cranial N 2-12 grossly normal.No focal deficits. Strength and sensation grossly intact. Skin: Warm and dry, no rash noted. - Labs CBC & Chem 7: 04/20/23 05:59 04/20/23 05:59 Labs: Abnormal Lab Results - Last 24 Hours (Table) 04/19/23 04/20/23 04/20/23 Range/Units 17:31 05:59 05:59 WBC 13.36 H (4.50-10.00) X 10*3/uL RBC 3.93 L (4.10-5.20) X 10*6/uL Hgb 11.6 L (12.0-15.0) d/dL Hct 36.2 L (37.2-46.3) % Neutrophils # 10.17 H (1.80-7.70) X 10*3/uL Monocytes # 1.09 H (0.20-1.00) X 10*3/uL POC Glucose (mg/dL) 121 H (70-110) mg/dL AST 55 H (13-35) U/L ALT 102 H (8-44) U/L Total Protein 5.7 L (6.2-8.2) d/dL Albumin 3.6 L (3.8-4.9) d/dL Assessment and Plan Assessment: Status post exploratory laparotomy, open cholecystectomy with gastric fistula repair, in a patient with recent adhesions in the area of the gallbladder lysed,02/20/23. Leukocytosis, improving Acute hypoxic respiratory failure postoperatively, expected outcome Chronic ALLERGY, exertional-induced asthma, since childhood. Elevated AST and ALT, postoperative Hyperglycemia, hemoglobin A1c ordered Hypothyroidism Anxiety Depression Morbid obesity, BMI 33.3 Plan: Continue on current medication regime ,monitoring and symptomatic treatment. Maintain aggressive pulmonary toileting including nebulized bronchodilators, Symbicort . Incentive spirometer reinforced.Increase ambulation as tolerated. Diet advancement ,pain management, antibiotics as per general surgery. The impression and plan of care has been dictated as directed. : I performed a history and examination of this patient, discussed the same with the dictator. I agree with the dictator's note ,documented as a scribe. Any additional findings or plans will be noted.
[2023-04-20] MEDS: ACETAMINOPHEN TAB 325 MG TAB PO PRN (16:02)
[2023-04-20 16:59] LABS: Glucose,Whole Blood 112 mg/dL (70-110)
[2023-04-20 21:59] LABS: Glucose,Whole Blood 94 mg/dL (70-110)
[2023-04-20] MEDS: MONTELUKAST 10 MG TAB PO SCH (22:17)
[2023-04-20] MEDS: clonazePAM 0.5 MG TAB PO SCH (22:17)
[2023-04-21] MEDS: PIPERACILLIN-TAZOBACTAM 3.375 GM in SODIUM CHLORIDE 0.9% 100 ML IVPB SCH ×3 (03:09→20:17)
[2023-04-21] MEDS: LEVOTHYROXINE 75 MCG TAB PO SCH (06:07)
[2023-04-21] MEDS: LACTATED RINGERS 1,000 ML IV SCH (06:09)
[2023-04-21 06:22] LABS: Glucose,Whole Blood 113 mg/dL (70-110)
[2023-04-21] MEDS: INSULIN ASPART (NovoLOG) 100 UNIT/ML VIAL SQ SCH ×4 (06:23→21:38)
[2023-04-21] MEDS: ENOXAPARIN 40 MG/0.4 ML SYRINGE SQ SCH (07:26)
[2023-04-21] MEDS: VENLAFAXINE HCL ER 150 MG CAP PO SCH ×2 (07:27→20:17)
[2023-04-21] MEDS: buPROPion XL 300 MG TAB.ER.24H PO SCH (07:27)
[2023-04-21] MEDS: PANTOPRAZOLE 40 MG TABLET PO SCH (07:27)
[2023-04-21] MEDS: LORATADINE 10 MG TAB PO SCH (07:27)
[2023-04-21] MEDS: IPRATROPIUM-ALBUTEROL 3 ML NEB INHALATION SCH ×4 (08:46→21:23)
[2023-04-21] MEDS: SYMBICORT 80-4.5 MCG INHALER INHALATION SCH ×2 (08:46→21:23)
[2023-04-21 11:19] LABS: Glucose,Whole Blood 105 mg/dL (70-110)
[2023-04-21 16:12] LABS: Glucose,Whole Blood 102 mg/dL (70-110)
--- NOTE | 2023-04-21 16:45 | P.PN ---
Subjective Progress Note Date: 04/21/23 ANDERSON is serosanguineous. Dressing intact. Tolerating full liquid diet. Would advance diet. Patient inquiring of walker for home. Objective - Vital Signs Vital signs: Vital Signs Temp 98.3 F 04/21/23 13:05 Pulse 80 04/21/23 13:05 Resp 18 04/21/23 13:05 BP 125/70 04/21/23 13:05 Pulse Ox 97 04/21/23 13:05 FiO2 21 04/21/23 08:45 Intake & Output 04/20/23 04/21/23 04/21/23 18:59 06:59 18:59 Intake Total 840 Output Total 40 20 Balance 800 -20 Intake: Intake, IV Titration 340 Amount Lactated Ringers 1,000 ml 240 @ 20 mls/hr IV .Q24H [facility] Rx#:[id number] Piperacillin-Tazobactam 3 100 .375 gm In Sodium Chloride 0.9% 100 ml @ 25 mls/hr IVPB Q8H [facility] Rx#: [id number] Oral 500 Output: Drainage 40 20 Right Abdomen 40 20 Other: # Voids 1 3 1 - Labs CBC & Chem 7: 04/20/23 05:59 04/20/23 05:59 Labs: Abnormal Lab Results - Last 24 Hours (Table) 04/20/23 04/21/23 Range/Units 16:56 06:20 POC Glucose (mg/dL) 112 H 113 H (70-110) mg/dL
[2023-04-21] MEDS: ACETAMINOPHEN TAB 325 MG TAB PO PRN (17:00)
--- NOTE | 2023-04-21 19:36 | P.PN ---
Subjective This is a 63-year-old female with past medical history significant for laparoscopic lysis of adhesions, history of uterine cancer, hysterectomy, ast hma, hypothyroidism, anxiety, depression and multiple other medical issues status post diagnostic laparoscopy, open cholecystectomy with repair of gastric fistula. Patient reports "recent attempted surgery but was unable to locate gallbladder. " ( OR 02/20/23, reported intense inflammatory reaction in the right upper quadrant involving the liver omentum ,stomach and duodenum , adhesions in the area of the gallbladder lysed, gallbladder not well visualized, duodenum was stuck in the area of the gallbladder.Procedure aborted to obtain more imaging of the area, post lysis of adhesions.) This morning patient is status post diagnostic laparoscopy, open cholecystectomy with repair of gastric fistula, postop day #1. Maintained on IV fluid hydration, Zosyn .Reports breathing tightness, hypoxic, maintaining O2 sats in the 90s on 3 L nasal cannula. T-max 99.1, elevated WBC, 18.5. Hemoglobin 13.4, platelets 319, Bicarb 28.4, BUN 20.1, creatinine 0.9, glucose 133, AST 125, ALT 191. Reports pain uncontrolled last night,but improved this morning. Denies passing flatus. Denies nausea, vomiting. Denies chest pain, palpitations or shortness of breath. 04/20/2023 Tolerating clear liquid diet with no nausea vomiting or diarrhea. Afebrile, WBC trending down, 13.36. Breathing significantly improved .Maintaining O2 sats in the 90s on RA. Hemoglobin decreased to 11.6, platelets 224. BUN 14.5, creatinine 0.9. AST, ALT elevated, improving, 55, 102. Blood sugars controlled, A1c 5.7. Ambulating to bathroom, tolerated exertion well. Reason 63 years old female was admitted to the hospital for cholelithiasis She status post open cholecystectomy and repair of gastric fistula on 04/18. Today is postoperative day #3. Patient says that her abdominal pain is better. She tolerates liquid diet and placed on regular diet by surgical team We'll keep monitoring leukocytosis improving. On Zosyn Objective - Vital Signs Vital signs: Vital Signs Temp 98.3 F 04/21/23 13:05 Pulse 80 04/21/23 13:05 Resp 18 04/21/23 13:05 BP 125/70 04/21/23 13:05 Pulse Ox 97 04/21/23 13:05 FiO2 21 04/21/23 08:45 Intake & Output 04/20/23 04/21/23 04/21/23 18:59 06:59 18:59 Intake Total 840 Output Total 40 20 Balance 800 -20 Intake: Intake, IV Titration 340 Amount Lactated Ringers 1,000 ml 240 @ 20 mls/hr IV .Q24H [facility] Rx#:[id number] Piperacillin-Tazobactam 3 100 .375 gm In Sodium Chloride 0.9% 100 ml @ 25 mls/hr IVPB Q8H [facility] Rx#: [id number] Oral 500 Output: Drainage 40 20 Right Abdomen 40 20 Other: # Voids 1 3 - Exam GENERAL: The patient is alert and oriented x3, not in any acute distress. Well developed, well nourished. HEENT: Pupils are round and equally reacting to light. EOMI. No scleral icterus. No conjunctival pallor. Normocephalic, atraumatic. No pharyngeal erythema. No thyromegaly. CARDIOVASCULAR: S1 and S2 present. No murmurs, rubs, or gallops. PULMONARY: Chest is clear to auscultation, no wheezing . no crackles. -ABDOMEN: Soft, nontender, nondistended, normoactive bowel sounds. No palpable organomegaly. Surgical wound closed and is healing, dressing in place MUSCULOSKELETAL: No joint swelling or deformity. EXTREMITIES: No cyanosis, clubbing, or pedal edema. NEUROLOGICAL: Gross neurological examination did not reveal any focal deficits. SKIN: No rashes. no petechiae. - Labs CBC & Chem 7: 04/20/23 05:59 04/20/23 05:59 Labs: Abnormal Lab Results - Last 24 Hours (Table) 04/20/23 04/21/23 Range/Units 16:56 06:20 POC Glucose (mg/dL) 112 H 113 H (70-110) mg/dL Assessment and Plan Assessment: Cholelithiasis, Status post exploratory laparotomy, open cholecystectomy with gastric fistula repair, in a patient with recent adhesions in the area of the gallbladder lysed,02/20/23. Leukocytosis, improving Acute hypoxic respiratory failure postoperatively, expected outcome Chronic ALLERGY, exertional-induced asthma, since childhood. Elevated AST and ALT, postoperative Hyperglycemia, hemoglobin A1c ordered Hypothyroidism Anxiety Depression Morbid obesity, BMI 33.3 Plan: Continue with Zosyn Advance diet to regular by surgery Surgical team on the case Labs and medication were reviewed.. Continue same treatment. Continue with symptomatic treatment. Resume home medication. Monitor labs and vitals. DVT and GI prophylaxis. Further recommendations as per clinical course of the patient DVT prophylaxis: Subcutaneous Lovenox GI Prophylaxis: Ppi Prognosis is guarded
[2023-04-21] MEDS: MONTELUKAST 10 MG TAB PO SCH (20:17)
[2023-04-21] MEDS: clonazePAM 0.5 MG TAB PO SCH (20:17)
[2023-04-21 21:11] LABS: Glucose,Whole Blood 110 mg/dL (70-110)
[2023-04-22] MEDS: PIPERACILLIN-TAZOBACTAM 3.375 GM in SODIUM CHLORIDE 0.9% 100 ML IVPB SCH ×3 (03:30→19:48)
[2023-04-22] MEDS: LACTATED RINGERS 1,000 ML IV SCH (04:20)
[2023-04-22 05:36] LABS: Glucose,Whole Blood 95 mg/dL (70-110)
[2023-04-22] MEDS: INSULIN ASPART (NovoLOG) 100 UNIT/ML VIAL SQ SCH ×4 (05:37→21:04)
[2023-04-22] MEDS: LEVOTHYROXINE 75 MCG TAB PO SCH (06:02)
[2023-04-22] MEDS: ENOXAPARIN 40 MG/0.4 ML SYRINGE SQ SCH (07:30)
[2023-04-22] MEDS: LORATADINE 10 MG TAB PO SCH (07:30)
[2023-04-22] MEDS: PANTOPRAZOLE 40 MG TABLET PO SCH (07:30)
[2023-04-22] MEDS: VENLAFAXINE HCL ER 150 MG CAP PO SCH ×2 (07:30→19:46)
[2023-04-22] MEDS: buPROPion XL 300 MG TAB.ER.24H PO SCH (07:30)
[2023-04-22] MEDS: ACETAMINOPHEN TAB 325 MG TAB PO PRN (07:50)
[2023-04-22] MEDS: SYMBICORT 80-4.5 MCG INHALER INHALATION SCH ×2 (08:46→20:03)
[2023-04-22] MEDS: IPRATROPIUM-ALBUTEROL 3 ML NEB INHALATION SCH ×4 (08:47→20:03)
[2023-04-22 11:24] LABS: Glucose,Whole Blood 103 mg/dL (70-110)
--- NOTE | 2023-04-22 15:08 | P.PN ---
Subjective This is a 63-year-old female with past medical history significant for laparoscopic lysis of adhesions, history of uterine cancer, hysterectomy, ast hma, hypothyroidism, anxiety, depression and multiple other medical issues status post diagnostic laparoscopy, open cholecystectomy with repair of gastric fistula. Patient reports "recent attempted surgery but was unable to locate gallbladder. " ( OR 02/20/23, reported intense inflammatory reaction in the right upper quadrant involving the liver omentum ,stomach and duodenum , adhesions in the area of the gallbladder lysed, gallbladder not well visualized, duodenum was stuck in the area of the gallbladder.Procedure aborted to obtain more imaging of the area, post lysis of adhesions.) This morning patient is status post diagnostic laparoscopy, open cholecystectomy with repair of gastric fistula, postop day #1. Maintained on IV fluid hydration, Zosyn .Reports breathing tightness, hypoxic, maintaining O2 sats in the 90s on 3 L nasal cannula. T-max 99.1, elevated WBC, 18.5. Hemoglobin 13.4, platelets 319, Bicarb 28.4, BUN 20.1, creatinine 0.9, glucose 133, AST 125, ALT 191. Reports pain uncontrolled last night,but improved this morning. Denies passing flatus. Denies nausea, vomiting. Denies chest pain, palpitations or shortness of breath. 04/20/2023 Tolerating clear liquid diet with no nausea vomiting or diarrhea. Afebrile, WBC trending down, 13.36. Breathing significantly improved .Maintaining O2 sats in the 90s on RA. Hemoglobin decreased to 11.6, platelets 224. BUN 14.5, creatinine 0.9. AST, ALT elevated, improving, 55, 102. Blood sugars controlled, A1c 5.7. Ambulating to bathroom, tolerated exertion well. 04/21/2023 Reason 63 years old female was admitted to the hospital for cholelithiasis She status post open cholecystectomy and repair of gastric fistula on 04/18. Today is postoperative day #3. Patient says that her abdominal pain is better. She tolerates liquid diet and placed on regular diet by surgical team We'll keep monitoring leukocytosis improving. On Zosyn 04/22/2023 Patient everyday she feels better, her RUQ pain is better and improvement with only little discomfort today. Still have no bowel movement. Patient is started on regular diet by surgery team Objective - Vital Signs Vital signs: Vital Signs Temp 98.0 F 06/25/23 07:10 Pulse 72 04/22/23 07:10 Resp 18 04/22/23 07:10 BP 109/66 04/22/23 07:10 Pulse Ox 95 04/22/23 08:47 FiO2 21 04/21/23 08:45 Intake & Output 04/21/23 04/22/23 04/22/23 18:59 06:59 18:59 Intake Total 840 Output Total 18 Balance 840 -18 Intake: Intake, IV Titration 340 Amount Lactated Ringers 1,000 ml 240 @ 20 mls/hr IV .Q24H [facility] Rx#:[id number] Piperacillin-Tazobactam 3 100 .375 gm In Sodium Chloride 0.9% 100 ml @ 25 mls/hr IVPB Q8H [facility] Rx#: [id number] Oral 500 Output: Drainage 18 Right Abdomen 18 Other: # Voids 1 1 - Exam GENERAL: The patient is alert and oriented x3, not in any acute distress. Well developed, well nourished. HEENT: Pupils are round and equally reacting to light. EOMI. No scleral icterus. No conjunctival pallor. Normocephalic, atraumatic. No pharyngeal erythema. No thyromegaly. CARDIOVASCULAR: S1 and S2 present. No murmurs, rubs, or gallops. PULMONARY: Chest is clear to auscultation, no wheezing . no crackles. -ABDOMEN: Soft, nontender, nondistended, normoactive bowel sounds. No palpable organomegaly. Surgical wound closed and is healing, dressing in place MUSCULOSKELETAL: No joint swelling or deformity. EXTREMITIES: No cyanosis, clubbing, or pedal edema. NEUROLOGICAL: Gross neurological examination did not reveal any focal deficits. SKIN: No rashes. no petechiae. - Labs CBC & Chem 7: 04/20/23 05:59 04/20/23 05:59 Assessment and Plan Assessment: Cholelithiasis, Status post exploratory laparotomy, open cholecystectomy with gastric fistula repair, in a patient with recent adhesions in the area of the gallbladder lysed,02/20/23. Leukocytosis, improving Acute hypoxic respiratory failure postoperatively, expected outcome Chronic ALLERGY, exertional-induced asthma, since childhood. Elevated AST and ALT, postoperative Hyperglycemia, hemoglobin A1c ordered Hypothyroidism Anxiety Depression Morbid obesity, BMI 33.3 Plan: Continue with Zosyn Advance diet to regular by surgery Surgical team on the case Labs and medication were reviewed.. Continue same treatment. Continue with symptomatic treatment. Resume home medication. Monitor labs and vitals. DVT a nd GI prophylaxis. Further recommendations as per clinical course of the patient DVT prophylaxis: Subcutaneous Lovenox GI Prophylaxis: Ppi Prognosis is guarded
[2023-04-22 15:54] LABS: Glucose,Whole Blood 107 mg/dL (70-110)
[2023-04-22] MEDS: HYDROcodone/APAP 5-325MG 1 EACH TAB PO PRN (19:46)
[2023-04-22] MEDS: MONTELUKAST 10 MG TAB PO SCH (19:46)
[2023-04-22] MEDS: clonazePAM 0.5 MG TAB PO SCH (19:46)
[2023-04-22 20:45] LABS: Glucose,Whole Blood 106 mg/dL (70-110)
--- NOTE | 2023-04-22 22:30 | P.PN ---
Subjective Progress Note Date: 04/22/23 Principal diagnosis: Clinically stable. Tolerating regular diet. Patient requesting walker. Discharge tomorrow. Objective - Vital Signs Vital signs: Vital Signs Temp 98.3 F 04/22/23 19:35 Pulse 73 04/22/23 19:35 Resp 18 04/22/23 19:35 BP 109/69 04/22/23 19:35 Pulse Ox 93 L 04/22/23 19:35 FiO2 21 04/21/23 08:45 Intake & Output 04/22/23 04/22/23 04/23/23 06:59 18:59 06:59 Intake Total 2120 Output Total 18 8 Balance -18 2112 Intake: Intake, IV Titration 340 Amount Lactated Ringers 1,000 ml 240 @ 20 mls/hr IV .Q24H TIFFANI Rx#:[id number] Piperacillin-Tazobactam 3 100 .375 gm In Sodium Chloride 0.9% 100 ml @ 25 mls/hr IVPB Q8H TIFFANI Rx#: [id number] Oral 1780 Output: Drainage 18 8 Right Abdomen 18 8 Other: # Voids 1 3 - Labs CBC & Chem 7: 04/20/23 05:59 04/20/23 05:59
[2023-04-23] MEDS: PIPERACILLIN-TAZOBACTAM 3.375 GM in SODIUM CHLORIDE 0.9% 100 ML IVPB SCH ×2 (03:47→13:24)
[2023-04-23 05:42] LABS: Glucose,Whole Blood 95 mg/dL (70-110)
[2023-04-23] MEDS: LACTATED RINGERS 1,000 ML IV SCH (06:17)
[2023-04-23] MEDS: LEVOTHYROXINE 75 MCG TAB PO SCH (06:17)
[2023-04-23] MEDS: INSULIN ASPART (NovoLOG) 100 UNIT/ML VIAL SQ SCH ×2 (06:17→12:15)
[2023-04-23 07:44] VITALS: RESP 18
[2023-04-23] MEDS: ENOXAPARIN 40 MG/0.4 ML SYRINGE SQ SCH (08:44)
[2023-04-23] MEDS: buPROPion XL 300 MG TAB.ER.24H PO SCH (08:44)
[2023-04-23] MEDS: PANTOPRAZOLE 40 MG TABLET PO SCH (08:44)
[2023-04-23] MEDS: LORATADINE 10 MG TAB PO SCH (08:44)
[2023-04-23] MEDS: VENLAFAXINE HCL ER 150 MG CAP PO SCH (08:44)
[2023-04-23] MEDS: HYDROcodone/APAP 5-325MG 1 EACH TAB PO PRN (09:29)
[2023-04-23] MEDS: IPRATROPIUM-ALBUTEROL 3 ML NEB INHALATION SCH ×3 (09:44→16:07)
[2023-04-23] MEDS: SYMBICORT 80-4.5 MCG INHALER INHALATION SCH (09:44)
[2023-04-23 11:35] LABS: Glucose,Whole Blood 115 mg/dL (70-110)
[2023-04-23 13:23] VITALS: BP 108/48; PULSE 74; TEMP 98
--- NOTE | 2023-04-23 13:25 | P.DS ---
Providers Date of admission: 04/18/23 10:24 Expected date of discharge: 04/23/23 Attending physician: Jordan Neal Consults: 04/18/23 10:24 Consult Physician Routine Consulting Provider: Christiano Milligan Consult Reason/Comments: Medical management Do you want consulting provider notified?: Yes Primary care physician: Christiano Milligan Hospital Course: Discharge diagnosis 1. 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 She status post diagnostic laparoscopy with open cholecystectomy and repair of gastric fistula. Patient's pain is controlled. She is tolerating diet. She is afebrile. She has been up and ambulating. She is having bowel movements. She is stable for discharge. Please refer to chart for any further details. Physician Operations Research Director note has been reviewed by physician. Signing provider agrees with the documented findings, assessment, and plan of care. Patient Condition at Discharge: Stable Plan - Discharge Summary Discharge Rx Participant: Yes New Discharge Prescriptions: New oxyCODONE HCL [OxyIR] 5 mg PO Q6H PRN 3 Days #12 tab PRN Reason: Pain Loratadine [Claritin] 10 mg PO DAILY tab Montelukast [Singulair] 10 mg PO HS #30 tab Budesonide/Formoterol Fumarate [Symbicort 80-4.5 Mcg Inhaler] 2 puff INHALATION BID #10.2 gm Continue Cholecalciferol [Vitamin D3 (25 Mcg = 1000 Iu)] 25 mcg PO DAILY clonazePAM [KlonoPIN] 0.5 mg PO HS buPROPion XL [Wellbutrin XL] 300 mg PO DAILY Levothyroxine Sodium [Synthroid] 75 mcg PO DAILY Atorvastatin [Lipitor] 20 mg PO HS Venlafaxine HCl [Effexor XR] 150 mg PO BID Omeprazole 40 mg PO DAILY Naproxen [Naprosyn] 500 mg PO BID PRN PRN Reason: Pain Albuterol Inhaler [Ventolin Hfa Inhaler] 2 puff INHALATION TID PRN PRN Reason: Shortness Of Breath Or Wheezing Docusate [Colace] 100 mg PO BID #20 capsule oxyCODONE HCL [OxyIR] 5 mg PO Q6H PRN 3 Days #10 tab PRN Reason: Pain Discharge Medication List Albuterol Inhaler [Ventolin Hfa Inhaler] 2 puff INHALATION TID PRN 01/23/23 [History] Atorvastatin [Lipitor] 20 mg PO HS 01/23/23 [History] Cholecalciferol [Vitamin D3 (25 Mcg = 1000 Iu)] 25 mcg PO DAILY 01/23/23 [History] Levothyroxine Sodium [Synthroid] 75 mcg PO DAILY 01/23/23 [History] Naproxen [Naprosyn] 500 mg PO BID PRN 01/23/23 [History] Omeprazole 40 mg PO DAILY 01/23/23 [History] Venlafaxine HCl [Effexor XR] 150 mg PO BID 01/23/23 [History] buPROPion XL [Wellbutrin XL] 300 mg PO DAILY 01/23/23 [History] clonazePAM [KlonoPIN] 0.5 mg PO HS 01/23/23 [History] Docusate [Colace] 100 mg PO BID #20 capsule 02/20/23 [Rx] oxyCODONE HCL [OxyIR] 5 mg PO Q6H PRN 3 Days #10 tab 02/20/23 [Rx] oxyCODONE HCL [OxyIR] 5 mg PO Q6H PRN 3 Days #12 tab 04/20/23 [Rx] Budesonide/Formoterol Fumarate [Symbicort 80-4.5 Mcg Inhaler] 2 puff INHALATION BID #10.2 gm 04/23/23 [Rx] Loratadine [Claritin] 10 mg PO DAILY tab 04/23/23 [Rx] Montelukast [Singulair] 10 mg PO HS #30 tab 04/23/23 [Rx] Follow up Appointment(s)/Referral(s): Christiano Milligan DO [Primary Care Provider] - 1 Week Jordan Neal MD [STAFF PHYSICIAN] - 1 Week Activity/Diet/Wound Care/Special Instructions: No driving while taking OxyIR No lifting over 10 pounds Shower daily. No soaking or tub baths for 2 weeks Very light activity until you are reevaluated at your follow up appointment with your surgeon Discharge Disposition: HOME SELF-CARE
[2023-04-23 14:41] LABS: Glucose,Whole Blood 127 mg/dL (70-110)
--- NOTE | 2023-04-23 15:04 | P.PN ---
Subjective Progress Note Date: 04/23/23 - History of Present Illness This is a 63-year-old female with past medical history significant for laparoscopic lysis of adhesions, history of uterine cancer, hysterectomy, asthma, hypothyroidism, anxiety, depression and multiple other medical issues status post diagnostic laparoscopy, open cholecystectomy with repair of gastric fistula. Patient reports "recent attempted surgery but was unable to locate gallbladder. " ( OR 02/20/23, reported intense inflammatory reaction in the right upper quadrant involving the liver omentum ,stomach and duodenum , adhesions in the area of the gallbladder lysed, gallbladder not well visualized, duodenum was stuck in the area of the gallbladder.Procedure aborted to obtain more imaging of the area, post lysis of adhesions.) This morning patient is status post diagnostic laparoscopy, open cholecystectomy with repair of gastric fistula, postop day #1. Maintained on IV fluid hydration, Zosyn .Reports breathing tightness, hypoxic, maintaining O2 sats in the 90s on 3 L nasal cannula. T-max 99.1, elevated WBC, 18.5. Hemoglobin 13.4, platelets 319, Bicarb 28.4, BUN 20.1, creatinine 0.9, glucose 133, AST 125, ALT 191. Reports pain uncontrolled last night,but improved this morning. Denies passing flatus. Denies nausea, vomiting. Denies chest pain, palpitations or shortness of breath. 04/20/2023 Tolerating clear liquid diet with no nausea vomiting or diarrhea. Afebrile, WBC trending down, 13.36. Breathing significantly improved .Maintaining O2 sats in the 90s on RA. Hemoglobin decreased to 11.6, platelets 224. BUN 14.5, creatinine 0.9. AST, ALT elevated, improving, 55, 102. Blood sugars controlled, A1c 5.7. Ambulating to bathroom, tolerated exertion well. 04/23/23 significant clinical improvement. Pain controlled, tolerating diet. Denies nausea vomiting or diarrhea, positive bowel movements. Denies chest p ain, palpitations or shortness of breath. Maintaining O2 sats in the 90s on room air. Afebrile. Objective - Vital Signs Vital signs: Vital Signs Temp 98.0 F 04/23/23 13:02 Pulse 74 04/23/23 13:02 Resp 18 04/23/23 13:02 BP 108/48 04/23/23 13:02 Pulse Ox 96 04/23/23 13:02 FiO2 21 04/21/23 08:45 Intake & Output 04/22/23 04/23/23 04/23/23 18:59 06:59 18:59 Intake Total 0 Output Total 8 Balance 2111 Intake: Intake, IV Titration 340 Amount Lactated Ringers 1,000 ml 240 @ 20 mls/hr IV .Q24H TIFFANI Rx#:[id number] Piperacillin-Tazobactam 3 100 .375 gm In Sodium Chloride 0.9% 100 ml @ 25 mls/hr IVPB Q8H TIFFANI Rx#: [id number] Oral 1780 Output: Drainage 8 Right Abdomen 8 Other: Voiding Method Toilet # Voids 3 1 - Exam PHYSICAL EXAM: VITAL SIGNS: As above GENERAL: Alert and oriented 3, Sitting up in chair, no acute distress HEENT: Normocephalic, Conjunctivae normal. eyes normal. MMM. NECK: Supple, No JVD. CARDIOVASCULAR: S1, S2 regular. No murmur RESPIRATION: Unlabored, equal air entry, Breath sounds diminished in the bases. ABDOMEN: Soft, status post surgery, wearing an abdominal binder. LEGS: No edema. no swelling NERVOUS SYSTEM: Cranial N 2-12 grossly normal.No focal deficits. Strength and sensation grossly intact. Skin: Warm and dry, no rash noted. - Labs CBC & Chem 7: 04/20/23 05:59 04/20/23 05:59 Labs: Abnormal Lab Results - Last 24 Hours (Table) 04/23/23 04/23/23 Range/Units 11:33 14:39 POC Glucose (mg/dL) 115 H 127 H (70-110) mg/dL Assessment and Plan Assessment: Status post exploratory laparotomy, open cholecystectomy with gastric fistula repair, in a patient with recent adhesions in the area of the gallbladder lysed,02/20/23. Leukocytosis, improving Acute hypoxic respiratory failure postoperatively, expected outcome Chronic ALLERGY, exertional-induced asthma, since childhood. Elevated AST and ALT, postoperative Hyperglycemia, hemoglobin A1c ordered Hypothyroidism Anxiety Depression Morbid obesity, BMI 33.3 Plan: Continue on current medication regime ,monitoring and symptomatic treatment. Maintain aggressive pulmonary toileting including nebulized bron chodilators, Symbicort . Incentive spirometer reinforced.Increase ambulation as tolerated. Pain management, antibiotics as per general surgery. Medically cleared for discharge. Patient anticipating discharge by primary-general surgery today. The impression and plan of care has been dictated as directed. : I performed a history and examination of this patient, discussed the same with the dictator. I agree with the dictator's note ,documented as a scribe. Any additional findings or plans will be noted.
== END 2023-04-23 16:06 | disposition home or self-care (01) | DRG 414 ==
LOC: OR 06:41 → 4SSUR 10:22 → OR 10:24
PROVIDERS: ADMIT Surgery; ATTEND Surgery
PROC: 0DNW4ZZ Release Peritoneum, Percutaneous Endoscopic Approach (ICD-10-PCS; 2023-04-18)
PROC: 0WQF0ZZ Repair Abdominal Wall, Open Approach (ICD-10-PCS; 2023-04-18)
PROC: 0FT40ZZ Resection of Gallbladder, Open Approach (ICD-10-PCS; principal; 2023-04-18 08:30)
DX: K80.12 Calculus of gallbladder with acute and chronic cholecystitis without obstruction (principal); J96.01 Acute respiratory failure with hypoxia; K31.6 Fistula of stomach and duodenum; E03.9 Hypothyroidism, unspecified; E66.01 Morbid (severe) obesity due to excess calories; Z68.33 Body mass index [BMI] 33.0-33.9, adult; E78.5 Hyperlipidemia, unspecified; F32.A Depression, unspecified; F41.9 Anxiety disorder, unspecified; J45.909 Unspecified asthma, uncomplicated; Z79.890 Hormone replacement therapy; Z79.899 Other long term (current) drug therapy; Z85.42 Personal history of malignant neoplasm of other parts of uterus; Z90.710 Acquired absence of both cervix and uterus
CPT/HCPCS: 80053; 83036; 85025; 88304; 94640; 94760